=== PATIENT | male | born 1935 | race Caucasian/White ===

== ENCOUNTER 2017-04-13 11:54 | Inpatient (IN) | payer MEDICARE, OTHER ==
[2017-04-13] MEDS ORDERED: 1/2 NS w/KCL 20 mEq 1,000 ML IV SCH (12:30)
[2017-04-13 13:44] LABS: #Basophils 0.1 thou/uL (0.0-0.2); #Eosinphils 0.1 thou/uL (0.0-0.7); #Lymphocytes 1.4 thou/uL (1.20-3.40); #Monocytes 0.9 thou/uL (0.11-0.59); #Neutrophils 8.2 thou/uL (1.40-6.50); %Basophils 0.5 % (0.0-1.0); %Eosinophils 0.7 % (0.0-10.0); %Lymphocytes 12.8 % (21.0-51.0); %Monocytes 8.4 % (0.0-10.0); Hematocrit 40.2 % (42.0-52.0); Mean Platelet Volume 7.6 fL (7.4-10.4); Red Blood Cell (RBC) Count 4.14 mill/uL (4.70-6.10); White Blood Cell (WBC) Count 10.5 thou/uL (4.8-10.8)
[2017-04-13 14:18] LABS: ALT (SGPT) 13 U/L (8-55); AST (SGOT) 24 U/L (5-34); Alkaline Phosphatase 52 U/L (40-150); Anion Gap 16 mmol/L (10-20); BUN (Urea Nitrogen) 9 mg/dL (8.4-25.7); Bilirubin, Total 1.7 mg/dL (0.2-1.2); Calc. Creatinine Clearance 0 mL/min (70-130); Calcium 9.3 mg/dL (7.8-10.44); Carbon Dioxide 27 mmol/L (23-31); Chloride 89 mmol/L (98-107); Estimated GFR-MDRD Greater than 90; Globulin 3.9 g/dL (2.4-3.5); Protein, Total 7.9 g/dL (5.8-8.1)
[2017-04-13 15:16] VITALS: BMI 25.2
[2017-04-13] MEDS ORDERED: FLU VACC TS2017-18 (>65YR) 0.5 ML SYRINGE IM ONE (16:00)
--- NOTE | 2017-04-13 16:57 | EKG ---
Test Reason : Blood Pressure : / mmHG Vent. Rate : 079 BPM Atrial Rate : 079 BPM P-R Int : 226 ms QRS Dur : 156 ms QT Int : 440 ms P-R-T Axes : 062 -53 071 degrees QTc Int : 504 ms Sinus rhythm with sinus arrhythmia with 1st degree A-V block Right bundle branch block Left anterior fascicular block Bifascicular block Abnormal ECG When compared with ECG of 26-JAN-2015 07:04, TN interval has increased Nonspecific T wave abnormality no longer evident in Inferior leads T wave inversion now evident in Lateral leads Confirmed by DR. Karen LENNON ([id number]) on 04/13/2017 4:57:15 PM Referred By: ANNY Confirmed By:DR. Karen LENNON
[2017-04-13 17:14] LABS: Bilirubin Negative (Negative); Blood, Urine Negative (Negative); Glucose, Urine (Dipstick) Negative (Negative); Ketone, Urine Trace mg/dL (Negative); Nitrite Negative (Negative); Protein, Urine (Dipstick) Negative (Neg-Trace)
[2017-04-13 17:16] LABS: Bacteria/HPF None Seen HPF (None Seen); Hyaline Casts/LPF 0-3 HYALINE CAST LPF (0-3 Hyaline); RBC/HPF 0-3 HPF (0-3); Squamous Epithelial None Seen HPF (0-3); WBC/HPF 0-3 HPF (0-3)
[2017-04-13] MEDS ORDERED: Sodium Chloride 0.9% 1,000 ML IV SCH (20:00)
[2017-04-13] MEDS: Linezolid 600 MG in Premix Bag 1 BAG IVPB SCH (21:27)
[2017-04-13] MEDS: Atorvastatin Calcium 20 MG TAB PO SCH (21:28)
[2017-04-13] MEDS: Apixaban 5 MG TAB PO SCH (21:29)
[2017-04-14 06:30] LABS: #Basophils 0.1 thou/uL (0.0-0.2); #Eosinphils 0.4 thou/uL (0.0-0.7); #Lymphocytes 1.1 thou/uL (1.20-3.40); #Neutrophils 4.7 thou/uL (1.40-6.50); %Basophils 1.4 % (0.0-1.0); %Eosinophils 4.9 % (0.0-10.0); %Lymphocytes 15.7 % (21.0-51.0); %Monocytes 13.3 % (0.0-10.0); Hematocrit 36.3 % (42.0-52.0); Mean Platelet Volume 7.9 fL (7.4-10.4); Red Blood Cell (RBC) Count 3.65 mill/uL (4.70-6.10); White Blood Cell (WBC) Count 7.3 thou/uL (4.8-10.8)
[2017-04-14 06:40] LABS: ALT (SGPT) 13 U/L (8-55); AST (SGOT) 23 U/L (5-34); Alkaline Phosphatase 45 U/L (40-150); Anion Gap 12 mmol/L (10-20); BUN (Urea Nitrogen) 8 mg/dL (8.4-25.7); Bilirubin, Total 1.3 mg/dL (0.2-1.2); Calc. Creatinine Clearance 102 mL/min (70-130); Calcium 8.3 mg/dL (7.8-10.44); Carbon Dioxide 24 mmol/L (23-31); Chloride 93 mmol/L (98-107); Estimated GFR-MDRD Greater than 90; Globulin 2.8 g/dL (2.4-3.5)
--- NOTE | 2017-04-14 06:59 | HP ---
DATE OF : 1935 HISTORY OF PRESENT ILLNESS: This is an 81-year-old white male with a history of atrial fibrillation , status post AVR, coronary artery disease who presents with a 3-day history of increasing left leg/ foot swelling and redness. This all began on Thursday, 3 days prior when he was possibly stung by an insect. [place] pants[place] Over the past several days, his left foot and leg have been becoming much worse with increasing swelling and redness. He does not report any fever or chills, nausea or vomiting. He was seen in the urgent care and given Keflex without i mprovement. He states he has been elevating his leg in the recliner. PAST MEDICAL HISTORY: Hypertension, hyperlipidemia, atrial fibrillation, gout, arthritis, heart mur mur, moderate aortic and mitral sclerosis with aortic stenosis, coronary artery disease status post bypass followed by Dr. Chaparro, aortic valve replacement by Dr. Escalera, history of hematuria. ALLERGIES: MORPHINE. PAST SURGICAL HISTORY: Left carotid endarterectomy 01/03/2017, coronary bypass graft x1 with aortic valve replacement by Dr. Escalera 03/21/2009, sigmoid colectomy in 1998, right knee surgery, tonsillec briseida, craniotomy age 3 from a fall, cystoscopy negative, colonoscopy 2005, repeat [address] Aguilar, last echo by Dr. Chaparro in 03/2016. FAMILY HISTORY: Mother with diabetes. Siblings with lung cancer. SOCIAL HISTORY: He is , retired truck shop supervisor. Does not smoke, does not drink. He has 7 chi ldren, 27 grandchildren, 45 great, 1 great great grandson and daughter. REVIEW OF SYSTEMS: As above. PHYSICAL EXAMINATION: VITAL SIGNS: Weight 159, temperature 97.8, heart rate 73, blood pressure 110/64. GENERAL: In no acute distress. HEENT: Clear. HEART: Regular rate and rhythm, minimal murmur noted. LUNGS: Clear. No rales, rhonchi. ABDOMEN: Soft, nontender. EXTREMITIES: Left foot with marked 2+ edema and erythema extending up to the 3/4 of this leg, an ab rasion is present on his ankle. LABORATORY AND X-RAY FINDINGS: None. ASSESSMENT: 1. Cellulitis of left leg. 2. History of atrial fibrillation. 3. Hypertension. 4. Hyperlipidemia. 5. Coronary artery disease. 6. Status post aortic valve replacement. PLAN: 1. Admit. 2. Elevate. 3. IV Zosyn 600 mg q.12h. 4. Can resume home medications which include Eliquis 5 b.i.d. 5. We will monitor and hopefully discharged in 2-3 days.
[2017-04-14] MEDS: Apixaban 5 MG TAB PO SCH ×2 (08:32→19:56)
[2017-04-14] MEDS: Gabapentin 300 MG CAP PO SCH (08:32)
[2017-04-14] MEDS: Allopurinol 300 MG TAB PO SCH (08:33)
[2017-04-14] MEDS: Linezolid 600 MG in Premix Bag 1 BAG IVPB SCH ×2 (08:33→19:57)
[2017-04-14] MEDS ORDERED: Hydrochlorothiazide 25 MG TAB PO SCH (09:00)
--- NOTE | 2017-04-14 09:19 | CON ---
DATE OF SERVICE: 04/14/2017 The patient is much better this morning. OBJECTIVE: VITAL SIGNS: Temperature 98.2, pulse 65, respirations 20, pulse ox 95, blood pressure 110/69. HEART: Regular rate and rhythm. LUNGS: Clear. ABDOMEN: Soft. EXTREMITIES: Left leg significantly decreased and with decrease in swelling. Marked decrease in er ythema. LABORATORY: White count 7.3, H\T\H 12 and 36, sodium 126, potassium 3.0, creatinine 0.58, BUN 8. ASSESSMENT: 1. Left leg and foot cellulitis markedly improved, but still present. 2. Hyponatremia. We will hold fluids and also discontinue the HCTZ. We will also fluid restrict. 3. History of atrial fibrillation, stable. 4. Hypertension. 5. Hyperlipidemia. 6. Coronary artery disease. 7. Status post aortic valve replacement. PLAN: 1. Fluid restriction to 1000 mL per day. 2. Keep left foot elevated. 3. Continue IV Zosyn. 4. CBC and BMP in a.m. 5. Add KCl 20 p.o. b.i.d. 6. Hold HCTZ. 7. Fluid restrict to 1000 mL.
[2017-04-14] MEDS: Potassium Chloride 20 MEQ TAB PO SCH (17:19)
[2017-04-14] MEDS: Atorvastatin Calcium 20 MG TAB PO SCH (19:57)
[2017-04-15 05:36] LABS: #Eosinphils 0.3 thou/uL (0.0-0.7); #Lymphocytes 1.5 thou/uL (1.20-3.40); #Monocytes 0.9 thou/uL (0.11-0.59); #Neutrophils 4.3 thou/uL (1.40-6.50); %Basophils 0.4 % (0.0-1.0); %Eosinophils 4.9 % (0.0-10.0); %Lymphocytes 21.2 % (21.0-51.0); %Monocytes 12.4 % (0.0-10.0); Hematocrit 37.1 % (42.0-52.0); Mean Platelet Volume 7.2 fL (7.4-10.4); Red Blood Cell (RBC) Count 3.91 mill/uL (4.70-6.10)
[2017-04-15 06:03] LABS: Anion Gap 13 mmol/L (10-20); BUN (Urea Nitrogen) 7 mg/dL (8.4-25.7); Calc. Creatinine Clearance 104 mL/min (70-130); Calcium 8.3 mg/dL (7.8-10.44); Carbon Dioxide 23 mmol/L (23-31); Chloride 96 mmol/L (98-107); Estimated GFR-MDRD Greater than 90
[2017-04-15] MEDS: Linezolid 600 MG in Premix Bag 1 BAG IVPB SCH ×2 (07:48→19:51)
[2017-04-15] MEDS: Allopurinol 300 MG TAB PO SCH (07:50)
[2017-04-15] MEDS: Gabapentin 300 MG CAP PO SCH (07:50)
[2017-04-15] MEDS: Apixaban 5 MG TAB PO SCH ×2 (07:50→19:52)
[2017-04-15] MEDS: Potassium Chloride 20 MEQ TAB PO SCH ×2 (07:50→17:22)
--- NOTE | 2017-04-15 09:45 | CON ---
DATE OF SERVICE: 04/15/2017 at 8 a.m. SUBJECTIVE: The patient continues to do well. His leg pain is decreasing. He does ambulate to the bathroom. OBJECTIVE: VITAL SIGNS: Temperature 98.0, pulse 64, respirations 18, pulse ox 94, blood pressure 124/73. HEART: Regular rate and rhythm. LUNGS: Clear. ABDOMEN: Soft. EXTREMITIES: Left leg with decreasing swelling and erythema. The erythema is slowly receding. Per ipheral pulses are 2+. LABORATORY AND X-RAY FINDINGS: White count 7.0, H\T\H 12 and 37. Sodium went from 126 to 128, pota ssium went from 3.0 to 3.6, creatinine 0.57, BUN 7, blood sugar 89. ASSESSMENT: 1. Left leg and foot cellulitis with decreasing erythema and swelling. 2. Hyponatremia, it has improved somewhat. We did hold the HCTZ and fluid restrict the patient yes terday. We will continue to follow. 3. History of atrial fibrillation, stable. 4. Hypertension. 5. Hyperlipidemia. 6. Coronary artery disease. 7. Status post aortic valve replacement. PLAN: 1. Continue fluid restriction. 2. Keep foot elevated. 3. Continue IV Zosyn. 4. BMP in a.m. 5. Continue with KCl 20 b.i.d.
[2017-04-15] MEDS: Atorvastatin Calcium 20 MG TAB PO SCH (19:52)
[2017-04-16 06:38] LABS: Anion Gap 10 mmol/L (10-20); BUN (Urea Nitrogen) 8 mg/dL (8.4-25.7); Calc. Creatinine Clearance 94 mL/min (70-130); Calcium 8.7 mg/dL (7.8-10.44); Carbon Dioxide 26 mmol/L (23-31); Chloride 97 mmol/L (98-107); Estimated GFR-MDRD Greater than 90
[2017-04-16] MEDS ORDERED: HYDROcodone/Acetaminophen 5/325 mg Tablet PO PRN (07:50)
[2017-04-16] MEDS: Allopurinol 300 MG TAB PO SCH (09:25)
[2017-04-16] MEDS: Apixaban 5 MG TAB PO SCH ×2 (09:25→21:40)
[2017-04-16] MEDS: Gabapentin 300 MG CAP PO SCH (09:25)
[2017-04-16] MEDS: Potassium Chloride 20 MEQ TAB PO SCH ×2 (09:26→17:00)
[2017-04-16] MEDS: Linezolid 600 MG in Premix Bag 1 BAG IVPB SCH ×2 (09:27→21:41)
--- NOTE | 2017-04-16 10:52 | PRG ---
DATE OF SERVICE: 04/16/2017 SUBJECTIVE: The patient states his pain is markedly improved. He states the redness in his leg has decreased dramatically. OBJECTIVE: VITAL SIGNS: Afebrile at 97.7, pulse 60, respirations 16, pulse oximetry 94, blood pressure 118/72. HEART: Regular rate and rhythm. LUNGS: Clear. ABDOMEN: Soft. EXTREMITIES: Left leg decreased erythema and swelling. LABORATORY DATA: Sodium 129 slowly rising, potassium 4.3, creatinine 0.63, BUN 8, blood sugar 84. ASSESSMENT: 1. Left foot and leg cellulitis, improving. 2. Hyponatremia, slowly improving. 3. History of atrial fibrillation. 4. Hypertension. 5. Hyperlipidemia. 6. Coronary artery disease. 7. Status post aortic valve replacement. PLAN: 1. Continue fluid restriction. 2. Keep foot elevated. 3. Continue IV Zosyn. 4. BMP in a.m. 5. Hopefully can discharge in the a.m.
[2017-04-16] MEDS: Atorvastatin Calcium 20 MG TAB PO SCH (21:40)
[2017-04-17 05:12] LABS: Anion Gap 11 mmol/L (10-20); BUN (Urea Nitrogen) 9 mg/dL (8.4-25.7); Calc. Creatinine Clearance 100 mL/min (70-130); Calcium 8.4 mg/dL (7.8-10.44); Carbon Dioxide 21 mmol/L (23-31); Chloride 100 mmol/L (98-107); Estimated GFR-MDRD Greater than 90
[2017-04-17 07:57] VITALS: BP 116/64; TEMP 97.9
--- NOTE | 2017-04-17 08:45 | DIS ---
DISCHARGE DIAGNOSES: 1. Left leg and foot cellulitis. 2. Hyponatremia. 3. Coronary artery disease. 4. Hypertension. 5. Hyperlipidemia. 6. History of aortic valve replacement. 7. History of atrial fibrillation. DISCHARGE MEDICATIONS: Cefdinir 300 p.o. b.i.d. #20. Allopurinol 300 p.o. daily, [place] 1 p.o. q.4h . p.r.n. 5/325, Eliquis 5 p.o. b.i.d., Lipitor 20 p.o. daily, Gabapentin 300 p.o. daily. Stop HCTZ. BRIEF HISTORY: This is an 81-year-old white male admitted from the office for left foot/leg celluli tis. This began several days prior to admission. He states it began with an insect bite. He was w [place]aring pants[place] For several days, his left foot and leg progressively becam e more swollen, red and painful. HOSPITAL COURSE: The patient was admitted. He was placed on IV Zyvox 600 b.i.d. The patient has d one well. His swelling and redness has decreased dramatically. He is feeling much better. He has remained afebrile the entire time. His sodium has been a problem. Sodium has remained stable betwe en 126 and 128. His mentation has been completely normal. His HCTZ was stopped and his fluids were restricted to less than 1000 mL per day. The patient continues to do well. I did talk with Dr. Chicho funez and he states that it may take time for the sodium to correct. He will see the patient next week. I will see the patient in 2 weeks. Sodium 128, potassium 4.42, chloride 100, creatinine 0.59, BUN 9, glucose 84. White count 7.0, H\T\ H 12 and 37, platelets of 214. Urine is clear. I did order a plasma osmolality, urine sodium, ches t x-ray, TSH, and lipids prior to discharge.
[2017-04-17] MEDS: Apixaban 5 MG TAB PO SCH (10:10)
[2017-04-17] MEDS: Potassium Chloride 20 MEQ TAB PO SCH (10:10)
[2017-04-17] MEDS: Gabapentin 300 MG CAP PO SCH (10:11)
[2017-04-17] MEDS: Allopurinol 300 MG TAB PO SCH (10:11)
--- NOTE | 2017-04-17 10:48 | RAD ---
TWO VIEWS CHEST: 04/17/2017 HISTORY: Hyponatremia. COMPARISON: 08/30/2011 TECHNIQUE: PA and lateral views of the chest obtained. FINDINGS: Two views of the chest demonstrate sternotomy wires seen. A prosthetic cardiac valve is in place. There is minimal blunting of the costophrenic angles, compatible with pleural scar. No acute intrat horacic abnormality is seen. IMPRESSION: Cardiomegaly and some pleural scarring. No acute intrathoracic abnormalities seen. POS: [facility]
== END 2017-04-17 10:42 | disposition home or self-care (01) | DRG 603 ==
LOC: T4-B 11:54
PROVIDERS: ADMIT Family Medicine; ATTEND Family Medicine
DX: L03.116 Cellulitis of left lower limb (principal); E87.1 Hypo-osmolality and hyponatremia; Z95.1 Presence of aortocoronary bypass graft; I48.91 Unspecified atrial fibrillation; I25.10 Atherosclerotic heart disease of native coronary artery without angina pectoris; I10 Essential (primary) hypertension; E78.5 Hyperlipidemia, unspecified; Z95.2 Presence of prosthetic heart valve; Z88.5 Allergy status to narcotic agent; Z83.3 Family history of diabetes mellitus; Z82.49 Family history of ischemic heart disease and other diseases of the circulatory system
CPT/HCPCS: 36415; 71020; 80048; 80053; 80061; 81001; 83930; 84443; 85025; 87040; 93005; 93010; A4216; J2020

== ENCOUNTER 2017-06-05 11:57 | Outpatient (CLI) | payer MEDICARE, OTHER ==
--- NOTE | 2017-06-05 12:45 | RAD ---
AP VIEW ABDOMEN: HISTORY: Calcaneus of kidney. FINDINGS: AP view abdomen is obtained on 06/05/17. Comparison is made to previous exam from 05/27/16. AP view abdomen demonstrates degenerative changes seen in the lumbar spine. The abdominal gas patter n is nonspecific. No evidence of obstruction or ileus is seen. No definite evidence of renal calcul i seen. Some stable calcifications are seen in the right pelvis most compatible with phleboliths. T he vascular calcifications are also seen. If there is concern for renal calculi, correlate with CT f or further workup. Exam is limited due to the fact that the patient has a large amount of stool in t he colon. IMPRESSION: No definite evidence of renal calculi seen. POS: [facility]
--- NOTE | 2017-06-05 12:51 | ULT ---
BILATERAL RENAL ULTRASOUND: HISTORY: Renal calculi. DATE: 06/05/17. FINDINGS: Multiple longitudinal and transverse images of the kidneys and bladder are obtained using a multihert z curvilinear transducer. Rela-time and color flow images are used to evaluate the kidneys and bladd er. Both kidneys are of normal contour, axis and size. The right kidney measures 10.9 and the left kidne y 11.2 cm from pole to pole. Several small shadowing structures are seen in the left kidney. I silas ot exclude the possibility of some left renal calculi. If these are calculi, they are quite small an d may not be present on plain film radiography. There may be a small approximately 5-6 mm calculus i n the mid pole of the left kidney. The bladder is unremarkable. IMPRESSION: Possible but not definite evidence of small mid pole left renal calculi. POS: [facility]
== END 2017-06-05 11:58 | disposition home or self-care (01) ==
LOC: ULT 11:57
PROVIDERS: ATTEND Urology
DX: N20.0 Calculus of kidney (principal)
CPT/HCPCS: 74000; 76770

== ENCOUNTER 2017-10-22 09:05 | Day surgery (SDC) | payer MEDICARE, OTHER ==
[2017-10-21 16:42] VITALS: BMI 29.9
[2017-10-22 12:12] LABS: Band 1 % (5-11); Hemoglobin 13.7 g/dL (14.0-18.0); Lymphocytes 27 % (21-51); MDiff Complete? YES; Mean Corpuscular HGB CONC 34.4 g/dL (32.0-36.0); Mean Corpuscular Hemoglobin 33.9 pg (27.0-31.0); Mean Corpuscular Volume 98.7 fl (80.0-94.0); Mean Platelet Volume 9.9 fL (7.4-10.4); Monocytes 6 % (0-10); Neutrophil 65 % (42-75); PLT Morphology Comment Appears Decreased; Platelet Count 110 thou/uL (130-400); RBC Distribution Width 12.2 % (11.5-14.5); Red Blood Cell (RBC) Count 4.05 mill/uL (4.70-6.10); White Blood Cell (WBC) Count 6.9 thou/uL (4.8-10.8)
[2017-10-22] MEDS ORDERED: Fentanyl 100 MCG/2 ML VIAL ONE (12:34)
[2017-10-22] MEDS ORDERED: PROPOFOL 20 ML ONE (12:34)
[2017-10-22] MEDS ORDERED: Lidocaine 1% w/Epinephrine 1:200K 30 ML VIAL ONE (12:36)
[2017-10-22] MEDS ORDERED: PROPOFOL 200 MG/20 ML VIAL ONE (12:41)
[2017-10-22] MEDS ORDERED: Lidocaine 1% PF 5 ML VIAL ONE (12:41)
--- NOTE | 2017-10-23 07:25 | EKG ---
Test Reason : PREOP Blood Pressure : / mmHG Vent. Rate : 079 BPM Atrial Rate : 079 BPM P-R Int : 234 ms QRS Dur : 146 ms QT Int : 446 ms P-R-T Axes : 089 -51 077 degrees QTc Int : 511 ms Sinus rhythm with 1st degree A-V block Right bundle branch block Left anterior fascicular block Bifascicular block Abnormal ECG When compared with ECG of 13-APR-2017 13:20, T wave inversion less evident in Anterior leads Confirmed by DR. Karen LENNON (3) on 10/23/2017 7:25:05 AM Referred By: ZELALEM Confirmed By:DR. Karen LENNON
--- NOTE | 2017-10-23 11:43 | OP ---
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 POSTOPERATIVE DIAGNOSIS: Squamous cell carcinoma of the left yarsanism. PROCEDURES PERFORMED: 1. Excision of a 4 cm left yarsanism malignant lesion. 2. Complex closure of left yarsanism lesion measuring of 12 cm. 3. Rhomboid tissue rearrangement flap measuring 12 cm included rearranging plaques in approximately 8 square cm with a cervical facial advancement flap. PROCEDURE IN DETAIL: After consent was obtained, the patient was identified, brought to the operatin g room and placed on the table in supine position. Monitored anesthesia care was delivered and the [facility] was positioned for surgery. The area was prepped and draped and a facial nerve monitor was pl aced in the orbicularis region and documented to be functioning. We then proceeded with infiltrating the area of intended incision with approximately 10 mL of 1% lidocaine with 1:100,000 epinephrine. We then used a 15-blade and made a quadrangular excision with consistent angles down through the ski n and subcutaneous tissues. We then excised the lesion at the level of the parotid fascia and sent i t as specimen for histologic evaluation. Margins were found to be clear. We then dropped a limb off the angles and perpendicular to the angle and created a rhomboid flap. Significant amount of tissue was undermined at the site of the rhomboid flap as well as around the lesion. We then rotated the f lap into the defect and closed the flap in layers with 5-0 Monocryl for the deep layers and 6-0 Prole ne for the skin. Sterile dressing was applied. The patient was awakened, extubated, and taken to re covery where she remained in stable condition for discharge antibiotics.
== END 2017-10-22 16:12 | disposition home or self-care (01) ==
LOC: SDC 09:05
PROVIDERS: ATTEND Specialist
PROC: 0JB10ZZ Excision of Face Subcutaneous Tissue and Fascia, Open Approach (ICD-10-PCS; principal; 2017-10-22)
DX: C76.0 Malignant neoplasm of head, face and neck (principal); I10 Essential (primary) hypertension; E78.5 Hyperlipidemia, unspecified; I48.91 Unspecified atrial fibrillation; M19.90 Unspecified osteoarthritis, unspecified site; M10.9 Gout, unspecified; I25.10 Atherosclerotic heart disease of native coronary artery without angina pectoris; Z88.5 Allergy status to narcotic agent; Z95.1 Presence of aortocoronary bypass graft; Z98.890 Other specified postprocedural states
CPT/HCPCS: 36415; 85025; 88305; 88331; 88332; 88341; 88342; 88360; 93005; 93010; J2001; J2704; J3010

== ENCOUNTER 2017-12-14 16:02 | Inpatient (IN) | payer MEDICARE, OTHER ==
[2017-12-14] MEDS ORDERED: Acetaminophen 325 MG TAB PO PRN (16:27)
[2017-12-14 17:26] VITALS: BMI 25.2
[2017-12-14] MEDS: Piperacillin/Tazobactam 3.375 GM in Sodium Chloride 0.9% 100 ML IVPB SCH ×2 (18:10→23:26)
[2017-12-14] MEDS: 1/2 NS w/KCL 20 mEq 1,000 ML IV SCH (18:35)
--- NOTE | 2017-12-14 19:29 | HP ---
HISTORY OF PRESENT ILLNESS: This is an 82-year-old white male with a history of coronary artery dise ase, atrial fibrillation, status post aortic valve replacement who presents with a right leg cellulit is. The patient does have a history last year of a left leg cellulitis in which he was hospitalized for 5 days. He has done well since then. He presents with a 5-day history of right leg redness and swelling. He was initially seen at Urgent Care and given antibiotics and followed up in the office a day later. His wounds seem to be improving. His erythema area was less than the demarcated lines; however, he presents today with his leg significantly worse with increased redness up the leg. Howev er, he does not complain of any fever. PAST MEDICAL HISTORY: Hypertension, hyperlipidemia, atrial fibrillation history, gout, arthritis, he art murmur, aortic stenosis, coronary artery disease, aortic valve replacement by Dr. Escalera. Cardiology is Dr. Chaparro. ALLERGIES: MORPHINE. PAST SURGICAL HISTORY: Carotid endarterectomy, 12/2014, Dr. Escalera; coronary artery bypass grafting x 1 with aortic valve replacement, 02/2009; sigmoid colectomy, 1998; tonsillectomy; right knee surgery; craniotomy, age 3 secondary to a fall from a high chair; colonoscopy, 2005; skin cancer removal, 2017. FAMILY HISTORY: Positive for diabetes, lung cancer, skin cancer. SOCIAL HISTORY: He is . He is a retired local truck driver. Nonsmoker. He does have 7 children, 27 grand, 45 great grand, and 1 great great grandson. REVIEW OF SYSTEMS: As above. PHYSICAL EXAMINATION: VITAL SIGNS: Blood pressure 110/62, temperature 98.8, O2 sat 99, respirations 16. GENERAL: No acute distress. HEENT: Clear. HEART: Regular rate and rhythm. LUNGS: Clear. ABDOMEN: Soft, nontender. EXTREMITIES: With right leg erythema, swelling, edema extending from the foot to the right knee. LABORATORY DATA: None at this time. ASSESSMENT: 1. Right leg cellulitis. 2. History of coronary artery disease. 3. Hypertension. 4. Hyperlipidemia. 5. History of atrial fibrillation. 6. History of gout. 7. Status post bypass grafting. 8. Status post aortic valve replacement. PLAN: 1. Admit. 2. Routine vitals. 3. IV fluids. 4. CBC, UA, comprehensive, blood cultures x2. 5. Elevate right leg on 2 pillows. MEDICATIONS: Zosyn 3.375 IV q.6 hours, vancomycin 1 gram IV q.12 hours, Tylenol 10 grains p.r.n. fev er, Eliquis 5 mg b.i.d., simvastatin 40 daily, gabapentin 300 at bedtime, digoxin 0.125 daily, cimeti dine 400 p.o. b.i.d.
[2017-12-14] MEDS: Famotidine 20 MG TAB PO SCH (20:14)
[2017-12-14] MEDS: Apixaban 5 MG TAB PO SCH (20:14)
[2017-12-14] MEDS: Simvastatin 40 MG TAB PO SCH (20:15)
[2017-12-14] MEDS: Gabapentin 300 MG CAP PO SCH (20:15)
[2017-12-14] MEDS: Vancomycin HCl 1 GM in Premix Bag 1 BAG IVPB SCH (20:15)
[2017-12-15] MEDS: Piperacillin/Tazobactam 3.375 GM in Sodium Chloride 0.9% 100 ML IVPB SCH ×3 (05:10→17:48)
[2017-12-15 05:20] LABS: #Eosinphils 0.2 thou/uL (0.0-0.7); #Lymphocytes 1.1 thou/uL (1.20-3.40); #Monocytes 0.9 thou/uL (0.11-0.59); #Neutrophils 3.9 thou/uL (1.40-6.50); %Basophils 0.6 % (0.0-1.0); %Eosinophils 3.5 % (0.0-10.0); %Lymphocytes 17.5 % (21.0-51.0); %Monocytes 13.9 % (0.0-10.0); %Neutrophils 64.4 % (42.0-75.0); Hemoglobin 11.9 g/dL (14.0-18.0); Mean Corpuscular HGB CONC 33.6 g/dL (32.0-36.0); Mean Corpuscular Volume 98.1 fL (78.0-98.0); Mean Platelet Volume 7.9 fL (7.4-10.4); Platelet Count 168 thou/uL (130-400); RBC Distribution Width 12.5 % (11.5-14.5); Red Blood Cell (RBC) Count 3.61 mill/uL (4.70-6.10); White Blood Cell (WBC) Count 6.1 thou/uL (4.8-10.8)
[2017-12-15 05:55] LABS: Anion Gap 12 mmol/L (10-20); BUN (Urea Nitrogen) 11 mg/dL (8.4-25.7); Calc. Creatinine Clearance 79 mL/min (70-130); Calcium 8.7 mg/dL (7.8-10.44); Carbon Dioxide 25 mmol/L (23-31); Chloride 102 mmol/L (98-107); Estimated GFR-MDRD Greater than 90; Glucose 78 mg/dL (83-110); Potassium 4.1 mmol/L (3.5-5.1); Sodium 135 mmol/L (136-145)
--- NOTE | 2017-12-15 07:15 | PRG ---
DATE OF SERVICE: 12/15/2017 at 0700 hours. SUBJECTIVE: The patient's leg is feeling much better, but still in quite a bit of pain. OBJECTIVE: VITAL SIGNS: Temperature 98.3, pulse 65, respirations 16, pulse ox 97, blood pressure 112/69. HEART: Regular rate and rhythm. LUNGS: Clear. ABDOMEN: Soft. EXTREMITIES: Right leg with approximately 15% decrease in erythema and swelling markedly improved, b ut still a long way to go. LABORATORY DATA: White count 6.1, H&H 11 and 35. Electrolytes normal. Creatinine 0.74, BUN 11, glu cose 78. ASSESSMENT: 1. Right leg cellulitis, improving. 2. History of coronary artery disease. 3. Hypertension. 4. Hyperlipidemia. 5. History of atrial fibrillation. 6. History of gout. 7. Status post bypass grafting. 8. Status post aortic valve replacement. PLAN: 1. Continue Zosyn and vancomycin. 2. Awaiting cultures. 3. Continue to monitor right leg and keep elevated.
[2017-12-15] MEDS: Vancomycin HCl 1 GM in Premix Bag 1 BAG IVPB SCH ×2 (10:16→20:15)
[2017-12-15] MEDS: Apixaban 5 MG TAB PO SCH ×2 (10:17→20:14)
[2017-12-15] MEDS: Digoxin 0.125 MG TAB PO SCH (10:17)
[2017-12-15] MEDS: Famotidine 20 MG TAB PO SCH ×2 (10:17→20:14)
[2017-12-15] MEDS: Gabapentin 300 MG CAP PO SCH (20:14)
[2017-12-15] MEDS: Simvastatin 40 MG TAB PO SCH (20:14)
[2017-12-15] MEDS: 1/2 NS w/KCL 20 mEq 1,000 ML IV SCH (20:15)
[2017-12-16] MEDS: Piperacillin/Tazobactam 3.375 GM in Sodium Chloride 0.9% 100 ML IVPB SCH ×4 (00:23→20:28)
--- NOTE | 2017-12-16 07:53 | PRG ---
DATE OF SERVICE: 12/16/2017 SUBJECTIVE: The patient's right leg is feeling so much better. He is very pleased. He is also very pleased with the hospital and the staff. He said they are all very kind. OBJECTIVE: VITAL SIGNS: Temperature 97.9, pulse 67, respirations 18, pulse ox 93, blood pressure 115/67. HEART: Regular rate and rhythm. LUNGS: Clear. ABDOMEN: Soft. EXTREMITIES: Right lower extremity with significant the decreased swelling and erythema. Marked dec reased tenderness. The leg is much improved. LABORATORY: None. ASSESSMENT: 1. Right leg cellulitis, improving. 2. History of coronary disease. 3. Hypertension. 4. Hyperlipidemia. 5. History of atrial fibrillation. 6. History of gout. 7. Status post bypass grafting. 8. Status post aortic valve replacement. PLAN: 1. Continue Zosyn and vancomycin. Vancomycin level is being adjusted by pharmacy. 2. Continue to elevate leg. 3. Blood cultures remain negative.
[2017-12-16 08:41] LABS: Vancomycin, Trough 11.7 ug/mL
[2017-12-16] MEDS ORDERED: CEFAZOLIN/Water 2 GM/20 ML SYRINGE ONE (08:49)
[2017-12-16] MEDS ORDERED: Midazolam HCl 2 mg/2 ml Vial ONE (08:49)
[2017-12-16] MEDS: Vancomycin HCl 1 GM in Premix Bag 1 BAG IVPB SCH (10:46)
[2017-12-16] MEDS: Vancomycin HCl 1.25 GM in Sodium Chloride 0.9% 250 ML 250 ML IVPB SCH ×2 (10:47→20:33)
[2017-12-16] MEDS: Digoxin 0.125 MG TAB PO SCH (10:47)
[2017-12-16] MEDS: Apixaban 5 MG TAB PO SCH ×2 (10:48→20:29)
[2017-12-16] MEDS: Famotidine 20 MG TAB PO SCH ×2 (10:48→20:29)
[2017-12-16] MEDS: 1/2 NS w/KCL 20 mEq 1,000 ML IV SCH (20:29)
[2017-12-16] MEDS: Gabapentin 300 MG CAP PO SCH (20:29)
[2017-12-16] MEDS: Simvastatin 40 MG TAB PO SCH (20:29)
[2017-12-17] MEDS: Piperacillin/Tazobactam 3.375 GM in Sodium Chloride 0.9% 100 ML IVPB SCH ×4 (02:35→20:41)
--- NOTE | 2017-12-17 08:10 | PRG ---
DATE OF SERVICE: 12/17/2017 The patient states his right leg continues to get better and better every day. No complaints of feve r, chest pain, shortness of breath. The patient is ambulatory throughout the day. OBJECTIVE: VITAL SIGNS: Temperature 98.5, pulse 62, respirations 18, pulse ox 92, blood pressure 119/63. HEART: Regular rate and rhythm. LUNGS: Clear. ABDOMEN: Soft. EXTREMITIES: Right leg continues to improve. Decreased erythema, decreased swelling. Not quite cole dy for discharge. LABORATORY: None. ASSESSMENT: 1. Right leg cellulitis, improving. 2. History of coronary artery disease. 3. Hypertension. 4. Hyperlipidemia. 5. History of atrial fibrillation. 6. History of gout. 7. Status post bypass grafting. 8. Status post aortic valve replacement. PLAN: 1. Continue Zosyn and vancomycin. 2. Continue to elevate leg. 3. Hopefully, may discharge the patient tomorrow. The patient still has significant erythema and sw elling, but markedly improved since admission.
[2017-12-17] MEDS: Apixaban 5 MG TAB PO SCH ×2 (08:46→20:41)
[2017-12-17] MEDS: Famotidine 20 MG TAB PO SCH ×2 (08:46→20:42)
[2017-12-17] MEDS: Digoxin 0.125 MG TAB PO SCH (08:47)
[2017-12-17] MEDS: Vancomycin HCl 1.25 GM in Sodium Chloride 0.9% 250 ML 250 ML IVPB SCH ×2 (10:07→22:18)
[2017-12-17] MEDS: 1/2 NS w/KCL 20 mEq 1,000 ML IV SCH (17:24)
[2017-12-17] MEDS: Simvastatin 40 MG TAB PO SCH (20:41)
[2017-12-17] MEDS: Gabapentin 300 MG CAP PO SCH (20:41)
[2017-12-17 21:14] LABS: Vancomycin, Trough 16.7 ug/mL
[2017-12-18] MEDS: Piperacillin/Tazobactam 3.375 GM in Sodium Chloride 0.9% 100 ML IVPB SCH ×2 (02:58→10:28)
[2017-12-18 04:41] LABS: Hemoglobin 12.8 g/dL (14.0-18.0); Platelet Count 214 thou/uL (130-400)
[2017-12-18 04:50] LABS: Calc. Creatinine Clearance 98 mL/min (70-130); Estimated GFR-MDRD Greater than 90
[2017-12-18 07:22] VITALS: BP 135/77; TEMP 98.1
[2017-12-18] MEDS: Famotidine 20 MG TAB PO SCH (08:48)
[2017-12-18] MEDS: Apixaban 5 MG TAB PO SCH (08:48)
[2017-12-18] MEDS: Digoxin 0.125 MG TAB PO SCH (08:51)
[2017-12-18] MEDS: Vancomycin HCl 1.25 GM in Sodium Chloride 0.9% 250 ML 250 ML IVPB SCH (10:28)
--- NOTE | 2017-12-18 12:24 | DIS ---
DATE OF ADMISSION: 12/14/2017 DATE OF DISCHARGE: 12/18/2017 DISCHARGE DIAGNOSES: 1. Right leg cellulitis. 2. History of coronary artery disease. 3. Hypertension. 4. Hyperlipidemia. 5. History of atrial fibrillation. 6. History of gout. 7. Status post bypass grafting. 8. Status post aortic valve replacement. DISCHARGE MEDICATIONS: Cefdinir 300 one p.o. b.i.d. #20, allopurinol 300 mg daily, Eliquis 5 p.o. b. i.d., cimetidine 200 b.i.d., digoxin 0.125 mg daily, gabapentin 300 mg daily, Viagra 100 p.r.n., simv astatin 40 daily. BRIEF HISTORY: This is an 82-year-old white male with history of coronary artery disease, atrial fib rillation, status post aortic valve replacement who presented with a right leg cellulitis from the [facility]. The patient does have a history of a left leg cellulitis last year and he was hospitalized for 5 days. He has done well since then. The patient does frequently go outside and shorts and present s with multiple abrasions and insect bites to the legs. He presents with a 5-day history of right le g redness and swelling which has become progressively worse and he was brought in by family for [facility] treatment. He was initially seen in the Urgent Care and given antibiotics; however, his infection became much worse. Upon presentation to the office his right leg was completely red and swollen fro m the toes to the knee. HOSPITAL COURSE: He was admitted. He was placed on bed rest and his right leg was elevated on 2 pil lows. He was started on Zosyn and vancomycin. During his hospital stay, his right leg cellulitis anton s nearly resolved. He still has some mild erythema and mild swelling, but he has had remarkable impr ovement. I have instructed him to elevate his leg to 3 daily. I instructed him not to sit in a jennifer r for 5-6 hours. I also recommended that when he goes outside to wear some (02:54) loose pants. I reinforce him not to wear shorts outside in order to protect his legs. LABORATORY DATA: White count 6.1, H and H 11 and 35, platelet 168. Sodium 135, potassium 4.1, creat inine 0.74, BUN 11, glucose 78. No blood cultures done. The patient has been instructed to follow up in the office in 10 days for further evaluation. He is to come back to the emergency room for any reoccurrence of his redness or swelling.
== END 2017-12-18 10:32 | disposition home or self-care (01) | DRG 603 ==
LOC: T4-A 16:04
PROVIDERS: ADMIT Family Medicine; ATTEND Family Medicine
DX: L03.115 Cellulitis of right lower limb (principal); I25.10 Atherosclerotic heart disease of native coronary artery without angina pectoris; I10 Essential (primary) hypertension; I48.91 Unspecified atrial fibrillation; E78.5 Hyperlipidemia, unspecified; M10.9 Gout, unspecified; Z95.1 Presence of aortocoronary bypass graft; Z95.2 Presence of prosthetic heart valve
CPT/HCPCS: 36415; 80048; 80202; 82565; 85014; 85018; 85025; 85049; A4216; G8978-GP-CK; G8979-GP-CI; G8987-GO-CI; G8988-GO-CI; G8989-GO-CI; J2250; J2543; J3370; J7050